=== PATIENT | female | born 1990 | race Asian ===

== ENCOUNTER → 2022-04-01 | Outpatient (CLI) | payer MEDICAID ==
--- NOTE | 2022-04-01 21:03 | US ---
EXAMINATION TYPE: Transabdominal DATE OF EXAM: 04/01/2022 3:50 PM COMPARISON: NONE CLINICAL HISTORY: Z36.89 ENCOUNTER FOR OTHER SPECIFIED SCR. confirm dates EXAM PERFORMED: Transabdominal (TA) EXAM MEASUREMENTS: GESTATIONAL AGE / DATING Physician Established: Not yet established Dates by LMP: (10 weeks/0 days) EDC: 10/28/2022 Dates by First Scan: No previous this is first scan Dates by Current Scan for: (10 weeks/3 days) EDC: 10/25/2022 MATERNAL ANATOMY Uterus: 12.1 x 7.4 x 7.1 cm Right Ovary: 3.2 x 1.5 x 2.2 cm Left Ovary: 3.4 x 2.1 x 3.1 cm Post CDS / Adnexa: wnl Presence of free fluid: no Presence of corpus luteal cyst: no Presence of subchorionic bleed: no GESTATION / SURVEY CRL: 3.5 cm (10 weeks/3 days) Yolk Sac (normal less than 6mm): 3 mm Heart Rate: 165 bpm Rhythm: Normal IUP: Viable IUP IMPRESSION: Single viable intrauterine as described above.
[2022-04-01 22:34] LABS: HCT 41.7 % (37.2-46.3); HGB 13.9 g/dL (12.0-15.0); MCH 29.9 pg (27.0-32.0); MCHC 33.3 g/dL (32.0-37.0); MCV 89.7 fL (80.0-97.0); Mean Platelet Volume 10.2 fL (9.5-12.2); NRBC Per 100 WBC 0 /100 WBCS (0.0-0.0); Platelet Count 266 X 10*3/uL (140-440); RBC 4.65 X 10*6/uL (4.10-5.20); RDW 12.8 % (11.5-14.5); WBC 7.45 X 10*3/uL (4.50-10.00)
[2022-04-01 22:42] LABS: African American GFR (CKD) 148.5 (60.0-200.0); Non-African American GFR(CKD) 128.1 (60.0-200.0)
[2022-04-01 22:53] LABS: Hepatitis B Surface Antigen Nonreactive (Nonreactive); Hepatitis C IgG Antibody Nonreactive (Nonreactive)
[2022-04-02 00:31] LABS: HIV 2 AB Non-Reactive (Non-Reactive); HIV AB P24 Non-Reactive (Non-Reactive); HIV P24 AG Non-Reactive (Non-Reactive)
[2022-04-04 04:45] LABS: Toxoplasma Antibody (IgG) <3.0 IU/mL (<7.2); Toxoplasma Antibody (IgM) <3.0 AU/mL (<8.0)
== END | disposition home or self-care (01) ==
LOC: RADUSWWP 14:04
PROVIDERS: ATTEND Obstetrics & Gynecology
DX: Z36.89 Encounter for other specified antenatal screening (principal)
CPT/HCPCS: 76801; 82565; 82947; 85027; 86762; 86777; 86778; 86780; 86803; 86850; 86900; 86901; 87340; 87390

== ENCOUNTER → 2022-05-20 | Outpatient (CLI) | payer MEDICAID | END | disposition home or self-care (01) | LOC: LABWHC1 13:40 | PROVIDERS: ATTEND Obstetrics & Gynecology | DX: Z34.02 Encounter for supervision of normal first pregnancy, second trimester (principal); Z3A.00 Weeks of gestation of pregnancy not specified | CPT/HCPCS: 36415; 82105; 82677; 84702; 86336 ==

== ENCOUNTER → 2022-07-15 | Outpatient (CLI) | payer MEDICAID ==
[2022-07-15 10:48] LABS: HCT 39.4 % (37.2-46.3); HGB 12.8 g/dL (12.0-15.0); MCH 30.4 pg (27.0-32.0); MCHC 32.5 g/dL (32.0-37.0); MCV 93.6 fL (80.0-97.0); Mean Platelet Volume 9.9 fL (9.5-12.2); NRBC Per 100 WBC 0 /100 WBCS (0.0-0.0); Platelet Count 203 X 10*3/uL (140-440); RBC 4.21 X 10*6/uL (4.10-5.20); RDW 13.1 % (11.5-14.5)
== END | disposition home or self-care (01) ==
LOC: LABWHC1 07:20
PROVIDERS: ATTEND Obstetrics & Gynecology
DX: Z34.02 Encounter for supervision of normal first pregnancy, second trimester (principal); Z3A.00 Weeks of gestation of pregnancy not specified
CPT/HCPCS: 36415; 82950; 85027

== ENCOUNTER → 2022-09-26 | Outpatient (CLI) | payer MEDICAID ==
--- NOTE | 2022-09-26 11:24 | US ---
EXAMINATION TYPE: US OB >= 14 wk fetus DATE OF EXAM: 09/26/2022 COMPARISON: OB ultrasound 06/06/2022 CLINICAL INDICATION: Female, 32 years old with history of O36.63X0 EXCESS GROWTH; LGA, growth TECHNIQUE: OBTA GESTATIONAL AGE / DATING Physician Established: (35 weeks/3 days) EDC: 10/28/2022 Dates by LMP: (35 weeks/3 days) EDC: 10/28/2022 Dates by First Scan: (35 weeks/6 days) EDC: 10/25/2022 Dates by Current Scan: (38 weeks/3 days) EDC: 10/07/2022 SURVEY IUP: Single PLACENTA: Anterior PREVIA: No Previa BRIANA: 14.1 cm Normal CERVICAL LENGTH (transabdominal: norm > 3.0cm): Assess cervix and beginning and end of exam and due t o low shadowing head, measurement was not obtained BIOMETRY PRESENTATION: Vertex LIE: Longitudinal BPD: 9.8 cm 40 weeks / 3 days HC: 35.2 cm 41 weeks / 0 days AC: 29.5 cm 33 weeks / 4 days FL: 7.5 cm 38 weeks / 4 days ESTIMATED WEIGHT IN GRAMS: 2922 grams ESTIMATED WEIGHT IN LBS/OZ: 6 lbs. 7 oz. WEIGHT PERCENTAGE BASED ON ESTABLISHED DATES: 75% HC/AC: 1.2 Normal FL/AC: 25 Upper Normal HEART RATE: 134 bpm RHYTHM: Normal tech called office to inform of 3 week difference in growth Single live intrauterine gestation. IMPRESSION: Single live intrauterine gestation with estimated gestational age of 38 weeks 3 days and estimated du e date of 10/07/2022. There is a 3 week difference in expected growth from the first scan as reported above.
== END | disposition home or self-care (01) ==
LOC: RADUSWWP 10:14
PROVIDERS: ATTEND Obstetrics & Gynecology
DX: O36.63X0 Maternal care for excessive fetal growth, third trimester, not applicable or unspecified (principal); Z3A.38 38 weeks gestation of pregnancy
CPT/HCPCS: 76805

== ENCOUNTER → 2022-10-17 | Outpatient (CLI) | payer MEDICAID ==
--- NOTE | 2022-10-17 13:47 | US ---
EXAMINATION TYPE: US OB >= 14 wk fetus DATE OF EXAM: 10/17/2022 COMPARISON: OB ultrasound 09/26/2022 CLINICAL INDICATION: Female, 32 years old with history of O36.63X0 Large for dates; Large for dates TECHNIQUE: Transabdominal (TA) EXAM MEASUREMENTS: GESTATIONAL AGE / DATING Physician Established: (38 weeks/3 days) Dates by Current Scan for: (39 weeks/5 days) SURVEY IUP: Single PLACENTA: Anterior PREVIA: No previa BRIANA: 18 cm Normal CERVICAL LENGTH (transabdominal: norm > 3.0cm): 3.2 cm BIOMETRY PRESENTATION: Vertex LIE: Longitudinal BPD: 10.1 cm measurements out range for calculation package 41 weeks / 4 days HC: 35.7 cm measurements out range for calculation package 41 weeks / 6 days AC: 33.6 cm 37 weeks / 4 days FL: 7.7 cm 39 weeks / 2 days ESTIMATED WEIGHT IN GRAMS: 3631 grams ESTIMATED WEIGHT IN LBS/OZ: 8 lbs. 0 oz. WEIGHT PERCENTAGE BASED ON ESTABLISHED DATE: 76.8 % HC/AC: 1.06 Abnormal FL/AC: 22.86 Normal HEART RATE: 141 bpm RHYTHM: Normal Single live intrauterine gestation with estimated gestational age of 39 weeks 5 days. IMPRESSION: Single live intrauterine gestation with estimated gestational age of 39 weeks 5 days. Just over 1 wee k difference between ultrasound gestational age and physician establish gestational age. Abnormal inc reased HC and BPD measurements.
== END | disposition home or self-care (01) ==
LOC: RADUSWWP 12:52
PROVIDERS: ATTEND Obstetrics & Gynecology
DX: O36.63X0 Maternal care for excessive fetal growth, third trimester, not applicable or unspecified (principal); O48.0 Post-term pregnancy; Z3A.39 39 weeks gestation of pregnancy
CPT/HCPCS: 76805

== ENCOUNTER 2022-10-24 09:00 | Inpatient (IN) | payer MEDICAID ==
[2022-10-24] MEDS ORDERED: TERBUTALINE 1 MG/ML VIAL SQ PRN (09:05)
[2022-10-24] MEDS ORDERED: CARBOPROST TROMETHAMINE 250 MCG/ML 1 ML AMP IM PRN (09:05)
[2022-10-24] MEDS ORDERED: AMPICILLIN 2,000 MG in SODIUM CHLORIDE 0.9% 100 ML IVPB STA (09:05)
[2022-10-24] MEDS ORDERED: miSOPROStoL 200 MCG TAB PO PRN (09:05)
[2022-10-24] MEDS ORDERED: TRANEXAMIC 1,000 MG/100ML-NACL 1,000 MG in EMPTY BAG 1 BAG IV PRN (09:05)
[2022-10-24] MEDS ORDERED: OXYTOCIN 10 UNIT/ML 1 ML VIAL IM PRN (09:05)
[2022-10-24] MEDS ORDERED: LIDOCAINE 0.5% (PF) 5 MG/ML (50 ML SDV) SQ PRN (09:05)
[2022-10-24] MEDS ORDERED: METHYLERGONOVINE 0.2 MG/ML 1 ML AMP IM PRN (09:05)
[2022-10-24] MEDS: LACTATED RINGERS 1,000 ML IV SCH ×2 (09:07→19:49)
[2022-10-24] MEDS ORDERED: OXYTOCIN 30 UNITS/500 ML NS 30 UNIT in SALINE 1 500ML.BAG IV SCH ×2 (09:15→17:15)
[2022-10-24 09:24] LABS: Basophils % (A) 0 %; Eosinophils # (A) 0.1 k/uL (0-0.7); Eosinophils % (A) 1 %; HCT 43.3 % (34.0-46.0); HGB 14.7 gm/dL (11.4-16.0); Lymphocytes # (A) 1.9 k/uL (1.0-4.8); Lymphocytes % (A) 17 %; MCH 30.3 pg (25.0-35.0); MCHC 33.9 g/dL (31.0-37.0); MCV 89.3 fL (80.0-100.0); Mean Platelet Volume 9.4; Monocytes # (A) 0.7 k/uL (0-1.0); Monocytes % (A) 6 %; Neutrophils # (A) 8.7 k/uL (1.3-7.7); Neutrophils % (A) 76 %; Platelet Count 201 k/uL (150-450); RBC 4.85 m/uL (3.80-5.40); WBC 11.4 k/uL (3.8-10.6)
--- NOTE | 2022-10-24 09:31 | P.HPOB ---
History of Present Illness H&P Date: 10/24/22 Chief Complaint: [place] 32 year old at 39 weeks presents complaining of contractions. Her contractions started at 6am and continued to get more regular and more painful. She is naeem every 3-5 minutes. heart tones are 140 with moderate variability and reactive. Her cervix is 5/100/-1 with a bulging bag. Review of Systems All systems: negative Constitutional: Denies chills, Denies fever Eyes: denies blurred vision, denies pain Ears, nose, mouth and throat: Denies headache, Denies sore throat Cardiovascular: Denies chest pain, Denies shortness of breath Respiratory: Denies cough Gastrointestinal: Denies abdominal pain, Denies diarrhea, Denies nausea, Denies vomiting Genitourinary: Denies dysuria, Denies hematuria Musculoskeletal: Denies myalgias Integumentary: Denies pruritus, Denies rash Neurological: Denies numbness, Denies weakness Psychiatric: Denies anxiety, Denies depression Endocrine: Denies fatigue, Denies weight change Past Medical History Past Medical History: No Reported History History of Any Multi-Drug Resistant Organisms: None Reported Past Surgical History: No Surgical Hx Reported Past Anesthesia/Blood Transfusion Reactions: No Reported Reaction Past Psychological History: No Psychological Hx Reported Smoking Status: Never smoker Past Alcohol Use History: None Reported Past Drug Use History: None Reported Medications and Allergies Home Medications Medication Instructions Recorded Confirmed Type Ondansetron Odt [Zofran ODT] 1 tab PO DAILY 10/24/22 10/24/22 History Vit No.179/Iron/Folic 1 tab PO DAILY 10/24/22 10/24/22 History [ Tablet] Sertraline [Zoloft] 1 tab PO DAILY 10/24/22 10/24/22 History Allergies Allergy/AdvReac Type Severity Reaction Status Date / Time No Known Allergies Allergy Verified 10/24/22 09:01 Exam Osteopathic Statement: *. No significant issues noted on an osteopathic structural exam other than those noted in the History and Physical/Consult. Intake and Output 10/23/22 10/24/22 10/24/22 22:59 06:59 14:59 Other: Weight 71.668 kg Heart: Regular rate and rhythm Lungs: Clear to auscultation bilaterally Abdomen: Soft, nontender Extremities: Negative Homans sign Results Result Diagrams: 10/24/22 09:09 Abnormal Lab Results - Last 24 Hours (Table) 10/24/22 Range/Units 09:09 WBC 11.4 H (3.8-10.6) k/uL Neutrophils # 8.7 H (1.3-7.7) k/uL Assessment and Plan (1) Normal labor Current Visit: Yes Status: Acute Code(s): O80 - ENCOUNTER FOR FULL-TERM UNCOMPLICATED DELIVERY; Z37.9 - OUTCOME OF DELIVERY, UNSPECIFIED SNOMED Code(s): 68926527 (2) Positive GBS test Current Visit: Yes Status: Acute Code(s): B95.1 - STREPTOCOCCUS, GROUP B, CAUSING DISEASES [facility] SNOMED Code(s): 511124485 Plan: 1. admit to [facility] 2. antibiotics for GBS ppx 3. epidural for pain control 4. expectant management 5. anticipate normal vaginal delivery
[2022-10-24] MEDS ORDERED: fentaNYL (PF) 50 MCG/ML 5 ML AMP ONE (09:41)
[2022-10-24] MEDS ORDERED: ROPIVACAINE 5 MG/ML 20 ML AMPULE ONE (09:41)
[2022-10-24] MEDS ORDERED: PHENYLEPHRINE-0.9% NACL SYG 1,000 MCG/10 ML SYRINGE ONE (09:41)
[2022-10-24] MEDS ORDERED: SODIUM CHLORIDE 0.9% 100 ML BAG ONE (09:41)
[2022-10-24] MEDS: AMPICILLIN 1,000 MG in SODIUM CHLORIDE 0.9% 50 ML IVPB SCH ×2 (13:00→18:00)
[2022-10-24] MEDS ORDERED: diphenhydrAMINE 50 MG CAP PO PRN (17:12)
[2022-10-24] MEDS ORDERED: BENZOCAINE/MENTHOL SPRAY 1 GM/SPRAY AEROSOL TOPICAL PRN (17:12)
[2022-10-24] MEDS ORDERED: HYDROCORTISONE 2.5% RECTAL CREAM 30 GM TUBE RECTAL PRN (17:12)
[2022-10-24] MEDS ORDERED: diphenhydrAMINE 50 MG/ML 1 ML VIAL IVP PRN ×2 (17:12)
[2022-10-24] MEDS ORDERED: LANOLIN CREAM 5 GM TUBE TOPICAL PRN (17:12)
[2022-10-24] MEDS ORDERED: diphenhydrAMINE 25 MG CAP PO PRN (17:12)
[2022-10-24] MEDS ORDERED: SIMETHICONE 80 MG CHEWABLE PO PRN (17:12)
[2022-10-24] MEDS ORDERED: ZOLPIDEM 5 MG TAB PO PRN (17:12)
--- NOTE | 2022-10-24 17:15 | P.PROBDLV ---
Vaginal Delivery Note - . Vaginal Delivery Note: 32 year old at 39 weeks presents complaining of contractions. Her contractions started at 6am and continued to get more regular and more painful. She is naeem every 3-5 minutes. heart tones are 140 with moderate variability and reactive. Her cervix is 5/100/-1 with a bulging bag. Around 8:55 AM her water spontaneously ruptured and there was thin meconium. When she was uncomfortable she did get an epidural. IV antibiotics were started at 9 AM. At 1 PM she was 8 cm dilated, 90% effaced, and -1 station. She was naeem every 4-5 minutes. heart tones 145 with moderate variability and reactive. After position changes and a couple more hours she was still only 9 cm dilated and -1 station so Pitocin augmentation was started. Her cervix was completely dilated at 1606. She pushed, delivered a viable male infant over intact perineum under epidural anesthesia at 1653. Head delivered OA, nuchal cord 1 easily reduced, anterior shoulder delivered gentle downward guidance. By posterior shoulder and rest of body. Nose and mouth bulb suctioned, cord clamped and cut, infant placed on mother's abdomen. Apgars 8, 9, weight 8 pounds 2.7 ounces. Placenta delivered spontaneous a, intact with three-vessel cord at 1656. Vagina, cervix, and perineum were inspected. Second-degree midline laceration that went to the right labia was repaired with 3-0 Vicryl. Estimated blood loss 200 mL. Mother and baby in stable condition.
[2022-10-24] MEDS ORDERED: ROPIVACAINE 225 MG, fentaNYL (PF). 450 MCG in SODIUM CHLORIDE 0.9% 171 ML EPIDURAL ONE (20:29)
[2022-10-24] MEDS: IBUPROFEN 600 MG TAB PO PRN (20:49)
[2022-10-24] MEDS: SENNOSIDES-DOCUSATE SODIUM 1 EACH TAB PO SCH (20:49)
[2022-10-25 00:28] VITALS: RESP 16
[2022-10-25] MEDS: IBUPROFEN 600 MG TAB PO PRN ×2 (05:41→13:05)
[2022-10-25] MEDS: SENNOSIDES-DOCUSATE SODIUM 1 EACH TAB PO SCH (09:12)
[2022-10-25] MEDS: ACETAMINOPHEN TAB 325 MG TAB PO PRN ×2 (10:43→17:46)
[2022-10-25 12:00] LABS: Basophils % (A) 0 %; Eosinophils # (A) 0.1 k/uL (0-0.7); Eosinophils % (A) 1 %; HCT 34.2 % (34.0-46.0); HGB 11.8 gm/dL (11.4-16.0); Lymphocytes % (A) 9 %; MCH 31.3 pg (25.0-35.0); MCHC 34.4 g/dL (31.0-37.0); MCV 90.8 fL (80.0-100.0); Mean Platelet Volume 9.4; Monocytes # (A) 0.5 k/uL (0-1.0); Monocytes % (A) 5 %; Neutrophils # (A) 9.1 k/uL (1.3-7.7); Neutrophils % (A) 85 %; Platelet Count 168 k/uL (150-450); RBC 3.77 m/uL (3.80-5.40); RDW 13.1 % (11.5-15.5); WBC 10.8 k/uL (3.8-10.6)
--- NOTE | 2022-10-25 12:56 | P.PNOBGVD ---
Subjective - Subjective Principal diagnosis: S/P NVD PPD #1 Interval history: Patient seen and examined. Denies nausea, vomiting, chest pain, shortness of breath or calf pain Patient reports: Reports appetite normal, Reports voiding normally, Reports pain well controlled, Reports ambulating normally [place]: doing well Objective - Latest Vital Signs Latest vital signs: Vital Signs Temp Pulse Resp BP 10/25/22 08:45 97.8 F 61 16 107/69 10/25/22 04:00 97.7 F 87 16 96/58 10/25/22 00:00 98.4 F 76 16 104/66 10/24/22 19:15 98.3 F 114 H 17 141/65 10/24/22 18:45 106 H 17 115/75 10/24/22 18:15 106 H 17 128/73 10/24/22 18:00 117 H 17 145/87 10/24/22 17:45 106 H 17 148/88 10/24/22 17:30 109 H 17 135/81 10/24/22 17:15 97.6 F 120 H 18 140/83 Intake and Output 10/24/22 10/25/22 10/25/22 22:59 06:59 14:59 Intake Total 500.0 Output Total 770 Balance -270.0 Intake: Intake, IV Titration 500.0 Amount Oxytocin 30 Units/500 ml 500.0 Ns 30 unit In Saline 1 500ml.bag @ Per Protocol IV .Q0M [facility] Rx#:[id number] Output: Estimated Blood Loss 200 Output, Quantitative 570 Blood Loss Other: # Voids 2 1 - Exam Lungs: bilateral: normal Chest: Normal S1, Normal S2 Extremities: Present: normal Abdomen: Present: normal appearance, soft Uterus: Present: normal, firm - Labs Labs: Abnormal Lab Results - Last 24 Hours (Table) 10/25/22 Range/Units 11:30 WBC 10.8 H (3.8-10.6) k/uL RBC 3.77 L (3.80-5.40) m/uL Neutrophils # 9.1 H (1.3-7.7) k/uL Assessment and Plan (1) Normal labor Current Visit: Yes Status: Resolved Code(s): O80 - ENCOUNTER FOR FULL-TERM UNCOMPLICATED DELIVERY; Z37.9 - OUTCOME OF DELIVERY, UNSPECIFIED SNOMED Code(s): 50449042 (2) Positive GBS test Current Visit: Yes Status: Resolved Code(s): B95.1 - STREPTOCOCCUS, GROUP B, CAUSING DISEASES [id number] SNOMED Code(s): 076534484 (3) Status post normal vaginal delivery Current Visit: Yes Status: Acute Code(s): [id number] - SNOMED Code(s): 095885471 Plan: 1. Increase ambulation 2. Continue Zoloft which she has been on at home. 3. Continue care 4. Possible discharge later today
[2022-10-25] MEDS ORDERED: SERTRALINE 25 MG TAB PO SCH (13:00)
[2022-10-25 16:43] VITALS: BP 122/84; PULSE 90; TEMP 97.9
== END 2022-10-25 18:30 | disposition home or self-care (01) | DRG 807 ==
LOC: 4FBP 09:00
PROVIDERS: ADMIT Obstetrics & Gynecology; ATTEND Obstetrics & Gynecology
PROC: 10E0XZZ Delivery of Products of Conception, External Approach (ICD-10-PCS; principal; 2022-10-24)
PROC: 0KQM0ZZ Repair Perineum Muscle, Open Approach (ICD-10-PCS; principal; 2022-10-24)
DX: O77.0 Labor and delivery complicated by meconium in amniotic fluid (principal); Z37.0 Single live birth; O69.81X0 Labor and delivery complicated by cord around neck, without compression, not applicable or unspecified; O99.824 Streptococcus B carrier state complicating childbirth; O70.1 Second degree perineal laceration during delivery; Z3A.39 39 weeks gestation of pregnancy
CPT/HCPCS: 85025; 86850; 86900; 86901